=== PATIENT | male | born 1990 | race Two or more races ===

== ENCOUNTER 2018-06-03 19:07 | Emergency (ER) | payer MEDICAID ==
[~2018-06-03] VITALS: Ht 185.4 cm; Wt 69.8 kg
[2018-06-03 19:11] VITALS: BP 144/77
[2018-06-03 20:02] LABS: RAPID INFLUENZA A Negative (Negative); RAPID INFLUENZA B Negative (Negative)
[2018-06-03] MEDS ORDERED: ONDANSETRON ODT 4 MG ONE (20:13)
[2018-06-03] MEDS ORDERED: ONDANSETRON ODT 4 MG PO PRN (20:30)
== END 2018-06-03 20:23 | disposition home or self-care (01) ==
LOC: ED 20:17
DX: B34.9 Viral infection, unspecified (principal); R11.0 Nausea
CPT/HCPCS: 87400; 99283; Q0162